=== PATIENT | male | born 1995 | race Two or more races ===

== ENCOUNTER 2024-12-20 23:17 | Emergency (ER) | payer MEDICAID, SELFPAY ==
[2024-12-20 23:19] VITALS: BMI 43.5
--- NOTE | 2024-12-20 23:26 | EKG_ITS ---
[facility] Test Date: 2024-12-20 Pat Name: KRYSTIAN PHELPS Department: Room: - Gender: Male Entry Tech: : 1995 Requested By: ED Temporary Provider Order Number: [id number] Reading MD: ED Temporary Provider Measurements Intervals Pinson Rate: 68 P: 56 OK: 156 QRS: 50 QRSD: 117 T: 26 QT: 363 QTc: 388 Interpretive Statements SINUS RHYTHM INCOMPLETE RIGHT BUNDLE BRANCH BLOCK [90+ ms QRS DURATION, TERMINAL R IN V1/V2, 40+ ms S IN I/aVL/V4/V5/V6] No previous ECG available for comparison /[id number]/[email or web address]/[id number]
[2024-12-20 23:30] VITALS: BP 151/90; PULSE 66; RESP 18; TEMP 36.6; O2SAT 96
--- NOTE | 2024-12-20 23:42 | XR_ITS ---
Examination: PA lateral chest 2 views TECHNIQUE: Upright PA and lateral views 2 views Date and time: December 20, 2024 1147 hours INDICATION: Chest pain beginning 4 days ago. FINDINGS: Normal heart size. Lungs are clear. The osseous structures are intact IMPRESSION: No active disease
--- NOTE | 2024-12-20 23:53 | PD.EDCHEST ---
ED Chest Pain RME/HPI General Chief Complaint: Chest Pain Stated Complaint: CHEST PAIN MALAIS HEADACHE Time Seen by Provider: 12/20/24 23:41 Arrival date/time: 12/20/24 23:17 29M with history of alcohol and marijuana use presents to ED with several days of CP and generalized fatigue, as well as some SOB. Patient denies URI symptoms. Limitations: no limitations Related Data Previous Rx's ?Medication ?Instructions ?Recorded keflex 250mg 1 tab PO QID 5 days ##0 11/27/12 motrin 600mg 1 tab PO q6hprn pain ##30 11/27/12 Allergies Allergy/AdvReac Type Severity Reaction Status Date / Time NKA* Allergy Uncoded 12/20/24 23:24 Review of Systems Review of Systems Systems Reviewed: All systems reviewed, normal except as documented Constitutional Constitutional: Reports system reviewed and no additional complaints, except as documented, Reports as per HPI, Reports fatigue, Denies fever(s) and Denies headache(s) ENT Ears, Nose, Mouth, and Throat: Denies disequilibrium and Denies headache(s) Cardiovascular Cardiovascular: Reports system reviewed and no additional complaints, except as documented, Reports as per HPI, Reports chest pain and Reports dyspnea Respiratory Respiratory: Reports system reviewed and no additional complaints, except as documented, Denies cough and Reports dyspnea Gastrointestinal Gastrointestinal: Reports system reviewed and no additional complaints, except as documented, Denies abdominal pain, Denies nausea and Denies vomiting Neurologic Neurologic: Reports system reviewed and no additional complaints, except as documented, Denies confusion, Denies disequilibrium and Denies headache(s) Psychiatric Psychiatric: Denies confusion Endocrine Endocrine: Reports fatigue Past Medical History Social History SMOKING STATUS: Never smoker ED Exam General Limitations: Present no limitations General appearance: Present alert and in no apparent distress Head Head exam: Present atraumatic Eye Eye exam: Present normal appearance, PERRL and EOMI ENT ENT exam: Present normal exam, normal oropharynx and mucous membranes moist Neck Neck exam: Present normal inspection, full ROM and trachea midline Chest Chest inspection: Present normal inspection and symmetric chest wall rise Respiratory Respiratory exam: Present normal lung sounds bilaterally Cardiovascular Cardiovascular exam: Present regular rate, normal rhythm and normal heart sounds Abdominal Exam Abdominal exam: Present soft and normal bowel sounds Extremities Exam Extremities exam: Present normal inspection and full ROM Back Exam Back exam: Present normal inspection and full ROM Neurological Exam Neurological exam: Present alert, oriented X3 and CN II-XII intact Psychiatric Psychiatric exam: Present normal affect and normal mood Skin Skin exam: Present warm, dry, intact and normal color Course Quality Measures none Orders Category Date Time Status Bedside COVID-19 Antigen Test NOW Care 12/20/24 23:46 Completed Bedside Influenza A&B Antigen Test NOW Care 12/20/24 23:46 Completed EKG (ED ONLY) *Do not use* NOW Care 12/20/24 23:26 Completed EKG (ED Only) Stat Exams 12/20/24 23:26 Draft XR chest 2V Stat Exams 12/20/24 23:42 Completed B-Type Natriuretic Peptide Stat Lab 12/20/24 23:42 Completed CBC Stat Lab 12/20/24 23:42 Completed Comprehensive Metabolic Panel Stat Lab 12/20/24 23:42 Completed D-Dimer Stat Lab 12/20/24 23:42 Completed Drug Screen,Urine Stat Lab 12/21/24 00:15 Completed Partial Thromboplastin Time Stat Lab 12/20/24 23:42 Completed Prothrombin Time with INR Stat Lab 12/20/24 23:42 Completed Troponin I Stat Lab 12/20/24 23:42 Completed Vital Signs Vital signs: Vital Signs Temperature 98 F 12/20/24 23:30 Pulse Rate 66 12/20/24 23:30 Respiratory Rate 18 12/20/24 23:30 Blood Pressure 151/90 H 12/20/24 23:30 Pulse Oximetry (%) 96 12/20/24 23:30 Oxygen Delivery Method Room Air 12/20/24 23:30 OP at 96% on RA and WNLs Chest Pain MDM Narrative MDM Narrative:: 29M with history of alcohol and marijuana use presents to ED with several days of CP and generalized fatigue, as well as some SOB. Patient denies URI symptoms. Physical exam clear lungs and normal WOB. RRR. Patient appears somewhat sweaty. Patient is afebrile, calm, and alert. Swabs neg. EKG is NSR with possible RBBB. CXR normal. Normal trop, BNP, and d-dimer. Coags normal. No leukocytosis or anemia. CMP unremarkable. 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 Patient data External records reviewed:: [facility] previous records Clinical information provided by:: patient Social determinants that could affect healthcare access:: substance use Patient has the following chronic illnesses:: alcohol/marijuana How is presenting disease/condition affected by chronic disease/condition?: exacerbated by Evaluation data The following diagnostics were reviewed and interpreted by me:: lab results, radiology exam(s) and EKG tracing(s) Lab and/or radiology exams considered but not ordered:: ordered Interpretation Summary: above Medications / Prescriptions Medications or Prescriptions considered but not ordered:: not ordered Medication administrations:: n/a Consultations Consultation(s) initiated? (list below): No Diagnosis Chest Pain Differential Diagnosis: fracture of rib, pneumothorax, stable angina, unstable angina pectoris, atypical chest pain, st elevation myocardial infarction, costochondritis, chest pain, biliary colic and other (PE) Most likely diagnosis given after review of the tests above:: atypical chest pain Admission Indicated Admission indicated?: not indicated Admission Request Was there a request for admission?: No Disposition Plan Disposition Plan: Discharge Discharge Attestation Discharge Attestation: The patient and all family members were given an opportunity to ask questions and understood the discharge instructions. Discharge instructions specifically effects, indications for sooner follow up or return to the emergency department, and the expected course of current diagnosis. Patient condition: Stable Discharge Plan Plan Patient Disposition: HOME (Self Care) Discharge Disposition comment: Stable Prescriptions/Referrals Prescriptions/Med Rec: No Action keflex 250mg 1 tab PO QID 5 Days Qty: 0 0RF motrin 600mg 1 tab PO q6hprn pain Qty: 30 0RF Referrals: No Primary/Family,Physician [Primary Care Provider] - In 1 week Problem List Clinical Impression: Atypical chest pain Patient/Caregiver Discharge Instructions Education Materials: ED Chest Pain, Uncertain Cause Additional Instructions: Please follow-up with PCP within 24-48 hours and return immediately if symptoms worsen. Print Language: Bulgarian Stand Alone Forms: Patient Portal Info Letter PA/SONAR WATCHSTANDER Supervising Physician KILEY/SELINA Supervising Physician: Dr. Ellington
[2024-12-21 00:29] LABS: Basophils # (Auto) 0.1 Thou/mm3 (0.0-0.2); Basophils % (Auto) 1 % (0-2.5); Eosinophils # (Auto) 0.1 Thou/mm3 (0.0-0.5); Eosinophils % (Auto) 2 % (0-10); Hematocrit 40.4 % (41.0-53.0); Hemoglobin 14.0 g/dL (13.5-16.0); Immature Granulocytes Auto 0.01 Thou/mm3 (0.00-0.00); Lymphocytes # (Auto) 1.8 Thou/mm3 (1.0-4.8); Lymphocytes % (Auto) 23 % (10-50); Mean Corpuscular HGB Conc 34.7 g/dl (31.0-37.0); Mean Corpuscular Hemoglobin 29.7 pg (25.0-35.0); Mean Corpuscular Volume 86 fL (80-100); Monocytes # (Auto) 0.5 Thou/mm3 (0.0-0.8); Monocytes % (Auto) 7 % (0-12); Neutrophils # (Auto) 5.3 Thou/mm3 (1.8-7.7); Neutrophils % (Auto) 68 % (37-80); Nucleated Red Blood Cell # 0.00 Thou/mm3 (0.00-0.00); Nucleated Red Blood Cell % 0 /100 WBC (0); Platelet Count 254 Thou/mm3 (140-440); RDW Standard Deviation 38.7 fL (35.1-43.9); Red Blood Count 4.71 Miln/mm3 (4.50-5.90); White Blood Count 7.8 Thou/mm3 (3.8-10.6)
[2024-12-21 00:43] LABS: Amphetamine/Methamp Scrn,U Negative (Negative); Barbiturate Screen,Urine Negative (Negative); Benzodiazepines Screen,Urine Negative (Negative); Benzoylecgonine Screen, Ur Negative (Negative); Fentanyl Screen,Urine Negative (Negative); Opiate Screen,Urine Negative (Negative); THC Screen,Urine Positive (Negative)
[2024-12-21 00:46] LABS: INR 1.1 (0.9-1.3); Partial Thromboplastin Time 30.5 Seconds (22.0-36.0); Prothrombin Time 12.1 Seconds (9.0-12.2)
[2024-12-21 00:47] LABS: D-Dimer < 250 ng/mL (<600)
[2024-12-21 00:48] LABS: B-Type Natriuretic Peptide < 20 pg/mL (0-100)
[2024-12-21 00:52] LABS: Alanine Aminotransferase 28 U/L (10-49); Albumin, Serum 4.8 gm/dL (3.5-5.0); Albumin/Globulin Ratio 1.9 (1.2-2.2); Alkaline Phosphatase 92 U/L (46-116); Anion Gap 9 (7-16); Aspartate Amino Transferase 18 U/L (0-34); BUN/Creatinine Ratio 11 Ratio (12-20); Bilirubin,Total 0.3 mg/dL (0.3-1.2); Blood Urea Nitrogen 10 mg/dL (9-23); Calcium 9.8 mg/dL (8.3-10.6); Calcium (Corrected) 9.8 mg/dL (8.5-10.1); Carbon Dioxide 27.0 mMol/L (20.0-31.0); Chloride 108 mMol/L (98-107); Creatinine (Component) 0.9 mg/dL (0.6-1.3); Estimated Creatinine Clearance 188.0 mL/min (>60); Globulin 2.5 gm/dL (2.3-3.5); Glucose 99 mg/dL (74-106); Osmolality,Calculated 285 (275-295); Potassium 3.8 mMol/L (3.4-5.1); Sodium 144 mMol/L (136-145); Total Protein 7.3 gm/dL (5.7-8.2); Troponin I < 0.002 ng/mL (0.0-0.045); eGFR > 60 See Note
== END 2024-12-21 01:04 | disposition home or self-care (01) ==
PROVIDERS: Physician Assistant; Emergency Provider Emergency Medicine
DX: R07.89 Other chest pain (principal); I45.10 Unspecified right bundle-branch block
CPT/HCPCS: 36415; 71046; 80053; 80307; 83880; 84484; 85025; 85379; 85610; 85730; 87400; 87811; 93005; 99283